=== PATIENT | female | born 1990 | race Asian ===

== ENCOUNTER 2016-07-11 16:13 | Inpatient (IN) | payer MEDICAID ==
[2016-07-11] VITALS (9 sets, daily range): BP systolic 88–106; RESP 12–26; TEMP 98.4; Ht 154.9 cm; Wt 43.2 kg
[~2016-07-11] VITALS: Ht 154.9 cm; Wt 43.2 kg
[~2016-07-11 16:13] MED LIST: ETOMIDATE 2 MG/ML VIAL IV ONE; SUCCINYLCHOLINE 20 MG/ML VL ONE
[2016-07-11] MEDS ORDERED: INSULIN DRIP 1 UNIT/ML 100 ML IV SCH ×2 (16:40→18:35)
[2016-07-11] MEDS ORDERED: DEXTROSE 50% SYRINGE 50 ML IV PRN ×2 (16:40→18:35)
[2016-07-11] MEDS ORDERED: SODIUM CHLORIDE 0.9% 1,000 ML ONE ×3 (16:41→16:49)
[2016-07-11] MEDS ORDERED: ONDANSETRON 4 MG VIAL ONE (17:15)
[2016-07-11] MEDS ORDERED: SALINE FLUSH 10 ML FLUSH PRN (18:35)
[2016-07-11] MEDS ORDERED: SODIUM CHLORIDE 0.9% 50 ML IV ONE (19:03)
[2016-07-11] MEDS: SALINE FLUSH 10 ML FLUSH SCH (20:00)
[2016-07-11] MEDS ORDERED: SOD CHLOR 0.9% 1000 ML IV SCH (20:20)
[2016-07-11] MEDS: FAMOTIDINE 20 MG INJ IV SCH (20:30)
[2016-07-12] VITALS (21 sets, daily range): BP systolic 85–109; RESP 9–93; TEMP 98–98.9
[2016-07-12] MEDS: ONDANSETRON 4 MG VIAL IV PUSH PRN ×2 (00:32→21:16)
[2016-07-12] MEDS: MORPHINE 2 MG/ML SYR IV PRN ×6 (00:33→21:16)
[2016-07-12] MEDS ORDERED: D5 W/KCL 20MEQ/L 1,000 ML IV SCH (01:35)
[2016-07-12] MEDS ORDERED: D5-1/2-NS W/KCL 20MEQ/L 1,000 ML IV SCH (01:35)
[2016-07-12] MEDS ORDERED: DEXTROSE 5% SALINE 0.45% 1,000 ML IV SCH (01:35)
[2016-07-12] MEDS ORDERED: SODIUM CHLORIDE 0.45% 1,000 ML IV SCH (01:35)
[2016-07-12] MEDS ORDERED: DEXTROSE 5% 1,000 ML IV SCH (01:35)
[2016-07-12] MEDS ORDERED: SODIUM CHLOR 0.45% W/KCL 20MEQ 1,000 ML IV SCH (01:35)
[2016-07-12] MEDS ORDERED: POTASSIUM CHLORIDE PREMIX 50 ML IV PRN (01:35)
[2016-07-12] MEDS ORDERED: DEXTROSE 5% SALINE 0.9% 1,000 ML IV SCH (01:35)
[2016-07-12] MEDS ORDERED: SODIUM CHLOR 0.9% W/KCL 20MEQ 1,000 ML IV SCH (01:35)
[2016-07-12] MEDS ORDERED: SODIUM CHLORIDE 0.9% 1,000 ML IV SCH (01:35)
[2016-07-12] MEDS: D5-NS W/KCL 20MEQ/L 1,000 ML IV SCH ×2 (01:55→09:34)
[2016-07-12] MEDS ORDERED: MISSING DOSE XX ONE (04:10)
[2016-07-12] MEDS: SODIUM CHLORIDE 0.9% FLUSH BAG 500 ML IV SCH (05:19)
[2016-07-12] MEDS: FAMOTIDINE 20 MG INJ IV SCH ×2 (09:21→19:14)
[2016-07-12] MEDS: SALINE FLUSH 10 ML FLUSH SCH ×2 (09:22→20:00)
[2016-07-12] MEDS ORDERED: PROMETHAZINE 25 MG TAB PO PRN (10:50)
[2016-07-12] MEDS: CYANOCOBA 500 MCG TAB PO SCH (10:56)
[2016-07-12] MEDS: PANTOPRAZOLE 40 MG TAB PO SCH ×2 (10:57→16:01)
[2016-07-12] MEDS: SUCRALFATE 1GM/10ML SUSP PO SCH ×3 (11:00→19:14)
[2016-07-12] MEDS: ARIPiprazole 2 MG TAB PO SCH (11:33)
[2016-07-12] MEDS: PREGABALIN 75 MG CAP PO SCH (11:33)
[2016-07-12] MEDS: FLUOXETINE 20 MG CAP PO SCH (11:33)
[2016-07-12] MEDS: PROMETHAZINE 25 MG/ML VIAL IV PRN ×3 (11:34→23:21)
[2016-07-12] MEDS: LEVEMIR INSULIN SUBQ SCH (13:21)
[2016-07-12] MEDS ORDERED: TRAZODONE 100 MG TAB PO SCH (21:00)
[2016-07-13] MEDS: MORPHINE 2 MG/ML SYR IV PRN ×3 (02:59→10:09)
[2016-07-13] MEDS: ONDANSETRON 4 MG VIAL IV PUSH PRN (02:59)
[2016-07-13 04:16] VITALS: BP_SYST 106; RESP 18; TEMP 98.6
[2016-07-13] MEDS: SODIUM CHLORIDE 0.9% FLUSH BAG 500 ML IV SCH (04:18)
[2016-07-13] MEDS ORDERED: SODIUM CHLORIDE 0.9% FLUSH BAG 500 ML IV SCH (06:00)
[2016-07-13] MEDS: SUCRALFATE 1GM/10ML SUSP PO SCH ×2 (06:17→11:58)
[2016-07-13] MEDS: PROMETHAZINE 25 MG/ML VIAL IV PRN (06:17)
[2016-07-13] MEDS: SALINE FLUSH 10 ML FLUSH SCH (06:18)
[2016-07-13] MEDS: PANTOPRAZOLE 40 MG TAB PO SCH (06:26)
[2016-07-13 07:20] VITALS: BP_SYST 101; RESP 16; TEMP 98.2
[2016-07-13] MEDS: LEVEMIR INSULIN SUBQ SCH (07:58)
[2016-07-13] MEDS: PREGABALIN 75 MG CAP PO SCH (09:33)
[2016-07-13] MEDS: FAMOTIDINE 20 MG INJ IV SCH (09:33)
[2016-07-13] MEDS: CYANOCOBA 500 MCG TAB PO SCH (09:34)
[2016-07-13] MEDS: ARIPiprazole 2 MG TAB PO SCH (09:34)
[2016-07-13] MEDS: FLUOXETINE 20 MG CAP PO SCH (09:34)
[2016-07-13] MEDS ORDERED: APAP PO PRN (10:25)
[2016-07-13] MEDS ORDERED: TRAMADOL PO PRN (10:25)
[2016-07-13 11:59] VITALS: BP_SYST 111; RESP 20; TEMP 98.5
[2016-07-13 14:21] VITALS: BP_SYST 101; RESP 16; TEMP 98.2
== END 2016-07-13 16:19 | disposition home or self-care (01) | DRG 638 ==
LOC: ENRESERVTM → ENRESERVDT → ENRESERV → CANRESERV → ER 16:13 → EMR 17:39 → ENPENDDIS 17:39 → ICU 20:05 → 3S 07-12 15:36
PROVIDERS: ADMIT Internal Medicine; ATTEND Internal Medicine
PROC: 02HV33Z Insertion of Infusion Device into Superior Vena Cava, Percutaneous Approach (ICD-10-PCS; principal; 2016-07-11)
PROC: B548ZZA Ultrasonography of Superior Vena Cava, Guidance (ICD-10-PCS; 2016-07-11)
CPT/HCPCS: 51702; 71010; 80053; 82947; 85025; 93005; 94799; 96361; 96365; 96366; 96375; 99233; 99239

== ENCOUNTER 2016-07-24 17:22 | Inpatient (IN) | payer MEDICAID ==
[~2016-07-24] VITALS: Ht 154.9 cm; Wt 44.0 kg
[2016-07-24] VITALS (7 sets, daily range): BP systolic 86–108; RESP 12–17; TEMP 97.9; Ht 154.9 cm; Wt 44.0 kg
[2016-07-24] MEDS ORDERED: SODIUM CHLORIDE 0.9% 2,000 ML ONE (17:55)
[2016-07-24] MEDS ORDERED: INSULIN DRIP 1 UNIT/ML 100 ML IV SCH ×2 (18:05→20:20)
[2016-07-24] MEDS ORDERED: DEXTROSE 50% SYRINGE 50 ML IV PRN ×2 (18:05→20:20)
[2016-07-24] MEDS ORDERED: SODIUM CHLORIDE 0.9% 1,000 ML IV SCH (20:20)
[2016-07-24] MEDS ORDERED: Furosemide 20 MG/2 ML VIAL IV ONE (20:25)
[2016-07-24] MEDS ORDERED: SODIUM CHLORIDE 0.9% 1,000 ML ONE (20:59)
[2016-07-24] MEDS ORDERED: ONDANSETRON 4 MG VIAL IV PUSH PRN (22:45)
[2016-07-24] MEDS: MORPHINE 2 MG/ML SYR IV PRN (23:08)
[2016-07-24] MEDS: DEXTROSE 5% SALINE 0.9% 1,000 ML IV SCH (23:08)
[2016-07-24] MEDS: PANTOPRAZOLE 40 MG VIAL IV SCH (23:12)
[2016-07-24] MEDS: SODIUM CHLORIDE 0.9% IV SCH (23:31)
[2016-07-24] MEDS: MEROPENEM IV SCH (23:31)
[2016-07-25] VITALS (51 sets, daily range): BP systolic 77–119; RESP 8–26; TEMP 97.6–98.4
[2016-07-25] MEDS: DEXTROSE 5% SALINE 0.9% 1,000 ML IV SCH ×2 (05:28→13:22)
[2016-07-25] MEDS ORDERED: DIPHENHYDRAMINE 25 MG CAP PO ONE (07:00)
[2016-07-25] MEDS ORDERED: ACETAMINOPHEN 325 MG TAB PO ONE (07:00)
[2016-07-25] MEDS: MORPHINE 2 MG/ML SYR IV PRN ×3 (10:19→19:14)
[2016-07-25] MEDS: SODIUM CHLORIDE 0.9% IV SCH ×2 (12:22→20:11)
[2016-07-25] MEDS: PANTOPRAZOLE 40 MG VIAL IV SCH ×2 (12:22→20:10)
[2016-07-25] MEDS: MEROPENEM IV SCH ×2 (12:22→20:11)
[2016-07-25] MEDS ORDERED: D5-NS W/KCL 20MEQ/L 1,000 ML IV SCH (18:45)
[2016-07-25] MEDS: POTASSIUM CHLORIDE PREMIX 50 ML IV SCH ×3 (18:54→20:45)
== END 2016-07-25 22:38 | disposition left against medical advice (07) | DRG 377 ==
LOC: ER 17:22 → EMR 20:37 → ICU 22:17
PROVIDERS: ADMIT Internal Medicine; ATTEND Internal Medicine
DX: K92.2 Gastrointestinal hemorrhage, unspecified (principal); E10.10 Type 1 diabetes mellitus with ketoacidosis without coma; F11.20 Opioid dependence, uncomplicated; D62 Acute posthemorrhagic anemia; Z79.4 Long term (current) use of insulin; E10.43 Type 1 diabetes mellitus with diabetic autonomic (poly)neuropathy; K31.84 Gastroparesis; E78.5 Hyperlipidemia, unspecified; E10.40 Type 1 diabetes mellitus with diabetic neuropathy, unspecified; Z91.11 Patient's noncompliance with dietary regimen; F32.9 Major depressive disorder, single episode, unspecified; E78.00 Pure hypercholesterolemia, unspecified; E86.0 Dehydration
CPT/HCPCS: 36415; 36430; 36600; 71010; 74020; 80048; 80053; 80307; 81001; 82009; 82803; 82947; 83036; 83605; 83690; 84703; 85025; 86850; 86870; 86900; 86901; 86902; 86922; 87088; 96360; 96361; 96365; 96366; 99222; 99233

== ENCOUNTER 2016-08-02 15:51 | Inpatient (IN) | payer MEDICAID ==
[~2016-08-02] VITALS: Ht 154.9 cm; Wt 43.3 kg
[2016-08-02] VITALS (19 sets, daily range): BP systolic 56–97; RESP 12–21; TEMP 97.6; Ht 154.9 cm; Wt 43.3 kg
[~2016-08-02 15:51] MED LIST changes: -ETOMIDATE 2 MG/ML VIAL IV ONE; +LIDOCAINE 2% SYR 5 ML IV ONE; +PROPOFOL 20 ML PER ML IV ONE; -SUCCINYLCHOLINE 20 MG/ML VL ONE
[2016-08-02] MEDS ORDERED: SODIUM CHLORIDE 0.9% 2,000 ML ONE (16:24)
[2016-08-02] MEDS ORDERED: DEXTROSE 50% SYRINGE 50 ML IV PRN ×2 (16:40→18:00)
[2016-08-02] MEDS ORDERED: INSULIN DRIP 1 UNIT/ML 100 ML IV SCH ×2 (16:40→18:00)
[2016-08-02] MEDS ORDERED: SOD BICARB 8.4% SYR 50 ML ONE (17:12)
[2016-08-02] MEDS ORDERED: SODIUM CHLORIDE 0.9% 1,000 ML ONE (17:40)
[2016-08-02] MEDS ORDERED: PHARMACY TO DOSE VANCOMYCIN IV SCH (17:55)
[2016-08-02] MEDS ORDERED: PHARMACY TO DOSE ZOSYN IV SCH (17:55)
[2016-08-02] MEDS ORDERED: SOD BICARB 8.4% SYR 50 ML IV PRN (18:00)
[2016-08-02] MEDS ORDERED: SODIUM CHLORIDE 0.9% 1,000 ML IV SCH (18:00)
[2016-08-02] MEDS ORDERED: NOREPINEPHRINE 16 MG in DEXTROSE 5% 234 ML IV SCH (18:05)
[2016-08-02] MEDS ORDERED: SODIUM CHLORIDE 0.9% 1,000 ML IV ONE (18:05)
[2016-08-02] MEDS ORDERED: PIPERACIL/TAZO 4.5GM/100ML 100 ML IV STA (18:37)
[2016-08-02] MEDS ORDERED: VANCOMYCIN 1,750 MG in SODIUM CHLORIDE 0.9% 500 ML IV ONE (18:40)
[2016-08-02] MEDS: PROMETHAZINE 25 MG/ML VIAL IV PRN (19:28)
[2016-08-02] MEDS ORDERED: MISSING DOSE XX ONE (20:15)
[2016-08-02] MEDS: PANTOPRAZOLE 40 MG VIAL IV SCH (20:35)
[2016-08-02] MEDS ORDERED: CALCIUM GLUCONATE 2,000 MG in SODIUM CHLORIDE 0.9% 100 ML IV ONE (21:25)
[2016-08-02] MEDS ORDERED: **NOTE TO NURSE XX SCH (21:40)
[2016-08-02] MEDS: PIPERACIL/TAZO 3.375GM/50ML 50 ML IV SCH (23:47)
[2016-08-02] MEDS: DILAUDID 1 MG/ML AMP IV PRN (23:48)
[2016-08-03] VITALS (69 sets, daily range): BP systolic 68–123; RESP 7–56; TEMP 97.1–97.9
[2016-08-03] MEDS ORDERED: MISSING DOSE XX ONE ×2 (00:35→05:40)
[2016-08-03] MEDS: ONDANSETRON 4 MG VIAL IV PUSH PRN ×2 (02:06→23:24)
[2016-08-03] MEDS: PROMETHAZINE 25 MG/ML VIAL IV PRN ×2 (03:04→12:02)
[2016-08-03] MEDS ORDERED: CALCIUM GLUCONATE IV ONE (04:00)
[2016-08-03] MEDS ORDERED: SODIUM CHLORIDE 0.9% IV ONE (04:00)
[2016-08-03] MEDS: DILAUDID 1 MG/ML AMP IV PRN ×4 (04:48→20:31)
[2016-08-03] MEDS: PIPERACIL/TAZO 3.375GM/50ML 50 ML IV SCH ×4 (06:02→23:26)
[2016-08-03] MEDS: PANTOPRAZOLE 40 MG VIAL IV SCH (07:44)
[2016-08-03] MEDS: VANCOMYCIN 500 MG in SODIUM CHLORIDE 0.9% 100 ML IV SCH ×2 (08:10→16:33)
[2016-08-03] MEDS ORDERED: POTASSIUM PHOSPHATE 45 MMOL in SODIUM CHLORIDE 0.9% 500 ML IV ONE (08:20)
[2016-08-03] MEDS ORDERED: GLUCAGON 1 MG VIAL IM PRN (08:45)
[2016-08-03] MEDS ORDERED: MAGNESIUM SULF 1 GM/100 ML 100 ML IV ONE (08:55)
[2016-08-03] MEDS: LEVEMIR INSULIN SUBQ SCH ×2 (10:06→20:46)
[2016-08-03] MEDS: MAGNESIUM SULF 1 GM/100 ML 100 ML IV SCH ×3 (10:13→14:38)
[2016-08-03] MEDS: PANTOPRAZOLE 80 MG in SODIUM CHLORIDE 0.9% 250 ML IV SCH ×2 (11:53→20:30)
[2016-08-04] VITALS (24 sets, daily range): BP systolic 80–107; RESP 0–27; TEMP 97–98.4
[2016-08-04] MEDS: VANCOMYCIN 500 MG in SODIUM CHLORIDE 0.9% 100 ML IV SCH ×2 (00:49→08:29)
[2016-08-04] MEDS: PROMETHAZINE 25 MG/ML VIAL IV PRN ×2 (00:50→21:27)
[2016-08-04] MEDS: DILAUDID 1 MG/ML AMP IV PRN ×5 (02:28→23:37)
[2016-08-04] MEDS: PANTOPRAZOLE 80 MG in SODIUM CHLORIDE 0.9% 250 ML IV SCH ×2 (07:44→16:16)
[2016-08-04] MEDS: PIPERACIL/TAZO 3.375GM/50ML 50 ML IV SCH ×2 (07:45→12:39)
[2016-08-04] MEDS ORDERED: MAGNESIUM SULF 1 GM/100 ML 100 ML IV ONE (08:20)
[2016-08-04] MEDS ORDERED: CALCIUM GLUCONATE 2,000 MG in SODIUM CHLORIDE 0.9% 100 ML IV ONE (08:20)
[2016-08-04] MEDS: DEXTROSE 50% SYRINGE 50 ML IV PRN ×2 (08:40→12:46)
[2016-08-04] MEDS: LEVEMIR INSULIN SUBQ SCH ×2 (09:00→21:28)
[2016-08-04] MEDS: POTASSIUM CHLORIDE PREMIX 50 ML IV SCH ×2 (10:43→11:44)
[2016-08-04] MEDS: ONDANSETRON 4 MG VIAL IV PUSH PRN ×2 (11:11→19:14)
[2016-08-04] MEDS: FLUCONAZOLE 100 MG TAB PO SCH (14:51)
[2016-08-04] MEDS ORDERED: VANCOMYCIN 750 MG in SODIUM CHLORIDE 0.9% 100 ML IV SCH (16:00)
[2016-08-05] MEDS: PANTOPRAZOLE 80 MG in SODIUM CHLORIDE 0.9% 250 ML IV SCH ×3 (03:12→23:07)
[2016-08-05 03:13] VITALS: BP_SYST 110; RESP 20; TEMP 98.1
[2016-08-05] MEDS: DILAUDID 1 MG/ML AMP IV PRN ×5 (03:37→20:25)
[2016-08-05] MEDS: ONDANSETRON 4 MG VIAL IV PUSH PRN ×2 (07:54→15:57)
[2016-08-05 08:23] VITALS: BP_SYST 104; RESP 16; TEMP 98.6
[2016-08-05] MEDS ORDERED: MISSING DOSE XX ONE (09:10)
[2016-08-05] MEDS: LEVEMIR INSULIN SUBQ SCH ×2 (09:59→20:23)
[2016-08-05] MEDS: FLUCONAZOLE 100 MG TAB PO SCH (09:59)
[2016-08-05] MEDS: PROMETHAZINE 25 MG/ML VIAL IV PRN ×2 (12:07→20:24)
[2016-08-05 12:35] VITALS: BP_SYST 105; RESP 18; TEMP 97.3
[2016-08-05 16:24] VITALS: BP_SYST 97; RESP 18; TEMP 98.4
[2016-08-05 20:04] VITALS: BP_SYST 100; RESP 16; TEMP 98.2
[2016-08-05 23:18] VITALS: BP_SYST 93; RESP 18; TEMP 98.4
[2016-08-06] MEDS: ONDANSETRON 4 MG VIAL IV PUSH PRN (00:19)
[2016-08-06] MEDS: DILAUDID 1 MG/ML AMP IV PRN ×6 (00:20→22:20)
[2016-08-06 04:10] VITALS: BP_SYST 94; RESP 16; TEMP 98.6
[2016-08-06] MEDS: PROMETHAZINE 25 MG/ML VIAL IV PRN ×4 (04:31→22:19)
[2016-08-06 07:49] VITALS: BP_SYST 104; RESP 16; TEMP 98.6
[2016-08-06] MEDS: LEVEMIR INSULIN SUBQ SCH ×2 (08:48→20:55)
[2016-08-06] MEDS: PANTOPRAZOLE 80 MG in SODIUM CHLORIDE 0.9% 250 ML IV SCH ×2 (09:05→17:44)
[2016-08-06] MEDS ORDERED: MISSING DOSE XX ONE (09:30)
[2016-08-06] MEDS: FLUCONAZOLE 100 MG TAB PO SCH (11:01)
[2016-08-06 11:49] VITALS: BP_SYST 108; RESP 16; TEMP 98.6
[2016-08-06 16:04] VITALS: BP_SYST 103; RESP 16; TEMP 98.4
[2016-08-06 19:24] VITALS: BP_SYST 111; RESP 18; TEMP 98.6
[2016-08-06 22:37] VITALS: BP_SYST 110; RESP 18; TEMP 98.4
[2016-08-07] MEDS: ONDANSETRON 4 MG VIAL IV PUSH PRN ×2 (02:31→11:19)
[2016-08-07] MEDS: DILAUDID 1 MG/ML AMP IV PRN ×5 (02:32→20:01)
[2016-08-07 03:26] VITALS: BP_SYST 100; RESP 16; TEMP 98.4
[2016-08-07] MEDS: PANTOPRAZOLE 80 MG in SODIUM CHLORIDE 0.9% 250 ML IV SCH ×3 (03:55→22:39)
[2016-08-07] MEDS: SODIUM CHLORIDE 0.9% FLUSH BAG 500 ML IV SCH (06:00)
[2016-08-07] MEDS: PROMETHAZINE 25 MG/ML VIAL IV PRN ×3 (06:50→22:37)
[2016-08-07 07:51] VITALS: BP_SYST 104; RESP 18; TEMP 97.9
[2016-08-07] MEDS: LEVEMIR INSULIN SUBQ SCH ×2 (09:00→20:01)
[2016-08-07] MEDS: FLUCONAZOLE 100 MG TAB PO SCH (09:14)
[2016-08-07 11:38] VITALS: BP_SYST 99; RESP 16; TEMP 98.2
[2016-08-07 15:53] VITALS: BP_SYST 99; RESP 16; TEMP 98.5
[2016-08-07 19:59] VITALS: BP_SYST 106; RESP 18; TEMP 98.5
[2016-08-07 23:16] VITALS: BP_SYST 97; RESP 16; TEMP 98.3
[2016-08-08] MEDS: DILAUDID 1 MG/ML AMP IV PRN ×6 (00:03→21:01)
[2016-08-08] MEDS: SODIUM CHLORIDE 0.9% FLUSH BAG 500 ML IV SCH (02:28)
[2016-08-08 02:57] VITALS: BP_SYST 93; RESP 16; TEMP 98.1
[2016-08-08] MEDS: PROMETHAZINE 25 MG/ML VIAL IV PRN ×3 (04:39→21:00)
[2016-08-08 07:48] VITALS: BP_SYST 105; RESP 20; TEMP 99.3
[2016-08-08] MEDS: FLUCONAZOLE 100 MG TAB PO SCH (08:38)
[2016-08-08] MEDS: LEVEMIR INSULIN SUBQ SCH ×2 (08:38→21:02)
[2016-08-08] MEDS: ONDANSETRON 4 MG VIAL IV PUSH PRN ×2 (08:39→17:14)
[2016-08-08] MEDS ORDERED: MISSING DOSE XX ONE (08:55)
[2016-08-08] MEDS: PANTOPRAZOLE 80 MG in SODIUM CHLORIDE 0.9% 250 ML IV SCH ×2 (09:32→17:23)
[2016-08-08 11:25] VITALS: BP_SYST 105; RESP 20; TEMP 99
[2016-08-08 15:32] VITALS: BP_SYST 93; TEMP 98.6
[2016-08-08 15:33] VITALS: RESP 20
[2016-08-08 20:50] VITALS: BP_SYST 98; RESP 16; TEMP 99
[2016-08-09] VITALS (7 sets, daily range): BP systolic 94–107; RESP 12–20; TEMP 98.4–98.6
[2016-08-09] MEDS: DILAUDID 1 MG/ML AMP IV PRN ×3 (01:06→09:38)
[2016-08-09] MEDS: ONDANSETRON 4 MG VIAL IV PUSH PRN (01:06)
[2016-08-09] MEDS: PANTOPRAZOLE 80 MG in SODIUM CHLORIDE 0.9% 250 ML IV SCH (03:54)
[2016-08-09] MEDS: PROMETHAZINE 25 MG/ML VIAL IV PRN ×2 (04:00→11:40)
[2016-08-09] MEDS: SODIUM CHLORIDE 0.9% FLUSH BAG 500 ML IV SCH (05:03)
[2016-08-09] MEDS ORDERED: GLUCAGON 1 MG VIAL IM PRN (05:05)
[2016-08-09] MEDS ORDERED: DEXTROSE 50% SYRINGE 50 ML IV PRN (05:05)
[2016-08-09] MEDS: FLUCONAZOLE 100 MG TAB PO SCH (08:34)
[2016-08-09] MEDS: LEVEMIR INSULIN SUBQ SCH (09:49)
[2016-08-09] MEDS ORDERED: ACETAMINOPHEN 325 MG TAB PO PRN (10:55)
== END 2016-08-09 18:12 | disposition home or self-care (01) | DRG 871 ==
LOC: ENRESERVDT → ENRESERVTM → ER 15:51 → ENPENDDIS 18:16 → EMR 18:16 → ICU 19:00 → PCU2 08-04 18:06
PROVIDERS: ADMIT Internal Medicine; ATTEND Internal Medicine
PROC: 0DB38ZX Excision of Lower Esophagus, Via Natural or Artificial Opening Endoscopic, Diagnostic (ICD-10-PCS; 2016-08-04)
PROC: 0DB28ZX Excision of Middle Esophagus, Via Natural or Artificial Opening Endoscopic, Diagnostic (ICD-10-PCS; principal; 2016-08-04 13:25)
DX: A41.9 Sepsis, unspecified organism (principal); R57.1 Hypovolemic shock; E10.10 Type 1 diabetes mellitus with ketoacidosis without coma; K22.11 Ulcer of esophagus with bleeding; N17.9 Acute kidney failure, unspecified; E46 Unspecified protein-calorie malnutrition; T68.XXXA Hypothermia, initial encounter; J18.9 Pneumonia, unspecified organism; B37.81 Candidal esophagitis; D62 Acute posthemorrhagic anemia; E87.1 Hypo-osmolality and hyponatremia; K31.84 Gastroparesis; F41.9 Anxiety disorder, unspecified; F32.9 Major depressive disorder, single episode, unspecified; E10.43 Type 1 diabetes mellitus with diabetic autonomic (poly)neuropathy; Z91.19 Patient's noncompliance with other medical treatment and regimen
CPT/HCPCS: 36415; 36430; 36558; 71010; 80048; 80051; 80053; 80202; 80307; 81003; 82009; 82330; 82803; 82947; 83605; 83690; 83735; 84100; 84703; 85014; 85018; 85025; 86850; 86870; 86900; 86901; 86902; 86922; 87040; 87088; 88305; 88311; 96361; 96365; 96366; 96374; 99231; 99232; 99233; 99239; 99291

== ENCOUNTER 2016-08-14 13:15 | Inpatient (IN) | payer MEDICAID ==
[~2016-08-14] VITALS: Ht 154.9 cm; Wt 43.7 kg
[2016-08-14] VITALS (13 sets, daily range): BP systolic 85–112; RESP 12–16; TEMP 97.6–98.3; Ht 154.9 cm; Wt 43.7 kg
[2016-08-14] MEDS ORDERED: INSULIN DRIP 1 UNIT/ML 100 ML IV SCH ×2 (14:50→15:05)
[2016-08-14] MEDS ORDERED: DEXTROSE 50% SYRINGE 50 ML IV PRN ×2 (14:50→15:05)
[2016-08-14] MEDS ORDERED: BISACODYL 10 MG SUPP RECTAL PRN (15:10)
[2016-08-14] MEDS ORDERED: SODIUM CHLORIDE 0.9% 1,000 ML IV SCH (15:10)
[2016-08-14] MEDS ORDERED: SALINE FLUSH 10 ML FLUSH PRN (15:10)
[2016-08-14] MEDS ORDERED: MAG HYDROX 30 ML UDC PO PRN (15:10)
[2016-08-14] MEDS ORDERED: ALU/MAG/SIM 30 ML UDC PO PRN (15:10)
[2016-08-14] MEDS ORDERED: BISACODYL EC 5 MG TAB PO PRN (15:10)
[2016-08-14] MEDS ORDERED: PROMETHAZINE 25 MG/ML VIAL IV PRN (15:10)
[2016-08-14] MEDS ORDERED: ONDANSETRON 4 MG VIAL IV PRN (15:10)
[2016-08-14] MEDS ORDERED: DILAUDID 1 MG/ML AMP IV PRN ×2 (15:15→21:10)
[2016-08-14] MEDS ORDERED: LORAZEPAM 2 MG/ML VIAL IV PRN (15:15)
[2016-08-14] MEDS ORDERED: SODIUM CHLORIDE 0.9% 1,000 ML ONE (15:17)
[2016-08-14] MEDS ORDERED: HALOPERIDOL 5 MG/ML VIAL ONE (15:17)
[2016-08-14] MEDS: ARIPiprazole 2 MG TAB PO SCH (15:39)
[2016-08-14] MEDS: SUCRALFATE 1GM/10ML SUSP PO SCH ×2 (16:00→21:00)
[2016-08-14] MEDS: DUONEB INH SCH ×2 (17:31→22:16)
[2016-08-14] MEDS: PANTOPRAZOLE 40 MG VIAL IV SCH (18:28)
[2016-08-14] MEDS: SALINE FLUSH 10 ML FLUSH SCH (20:59)
[2016-08-14] MEDS ORDERED: TRAZODONE 50 MG TAB PO SCH (21:00)
[2016-08-15] VITALS (32 sets, daily range): BP systolic 78–124; RESP 10–24; TEMP 96.8–98.7
[2016-08-15] MEDS: DUONEB INH SCH ×6 (02:08→22:55)
[2016-08-15] MEDS: SUCRALFATE 1GM/10ML SUSP PO SCH ×4 (05:50→21:08)
[2016-08-15] MEDS: SODIUM CHLORIDE 0.9% FLUSH BAG 500 ML IV SCH (05:50)
[2016-08-15] MEDS: SALINE FLUSH 10 ML FLUSH SCH ×2 (07:09→22:44)
[2016-08-15] MEDS: PREGABALIN 75 MG CAP PO SCH (07:52)
[2016-08-15] MEDS: FLUOXETINE 20 MG CAP PO SCH (07:52)
[2016-08-15] MEDS: PANTOPRAZOLE 40 MG VIAL IV SCH (07:52)
[2016-08-15] MEDS: CYANOCOBA 500 MCG TAB PO SCH (07:52)
[2016-08-15] MEDS: ARIPiprazole 2 MG TAB PO SCH (07:53)
[2016-08-15] MEDS: FLUCONAZOLE 100 MG TAB PO SCH (07:53)
[2016-08-15] MEDS ORDERED: PROMETHAZINE 25 MG TAB PO PRN (08:50)
[2016-08-15] MEDS ORDERED: LEVEMIR INSULIN SUBQ ONE (08:50)
[2016-08-15] MEDS: LEVEMIR INSULIN SUBQ SCH (09:00)
[2016-08-15] MEDS ORDERED: ENOXAPARIN 40 MG/0.4 ML SYR SUBQ SCH (09:00)
[2016-08-15] MEDS: SODIUM CHLOR 0.9% W/KCL 20MEQ 1,000 ML IV SCH (09:47)
[2016-08-15] MEDS ORDERED: GLUCAGON 1 MG VIAL IM PRN (16:50)
[2016-08-15] MEDS ORDERED: DEXTROSE 50% SYRINGE 50 ML IV PRN (16:50)
[2016-08-15] MEDS ORDERED: ACETAMINOPHEN 325 MG TAB PO PRN (17:15)
[2016-08-15] MEDS: PANTOPRAZOLE 40 MG TAB PO SCH (17:23)
[2016-08-15] MEDS ORDERED: TRAZODONE 100 MG TAB PO SCH (21:00)
[2016-08-16 02:44] VITALS: BP_SYST 101; RESP 16; TEMP 98.1
[2016-08-16] MEDS: DUONEB INH SCH ×4 (02:58→14:23)
[2016-08-16] MEDS: SODIUM CHLORIDE 0.9% FLUSH BAG 500 ML IV SCH (04:08)
[2016-08-16] MEDS: SODIUM CHLOR 0.9% W/KCL 20MEQ 1,000 ML IV SCH (04:17)
[2016-08-16] MEDS: SUCRALFATE 1GM/10ML SUSP PO SCH ×2 (05:33→11:00)
[2016-08-16] MEDS: PANTOPRAZOLE 40 MG TAB PO SCH (05:35)
[2016-08-16 07:27] VITALS: BP_SYST 100; RESP 16; TEMP 98
[2016-08-16] MEDS: SALINE FLUSH 10 ML FLUSH SCH (07:49)
[2016-08-16] MEDS: LEVEMIR INSULIN SUBQ SCH (09:20)
[2016-08-16] MEDS: FLUCONAZOLE 100 MG TAB PO SCH (09:21)
[2016-08-16] MEDS: ARIPiprazole 2 MG TAB PO SCH (09:21)
[2016-08-16] MEDS: PREGABALIN 75 MG CAP PO SCH (09:21)
[2016-08-16] MEDS: FLUOXETINE 20 MG CAP PO SCH (09:21)
[2016-08-16] MEDS: CYANOCOBA 500 MCG TAB PO SCH (09:21)
[2016-08-16 11:00] VITALS: BP_SYST 110; RESP 20; TEMP 98.6
[2016-08-16 11:15] VITALS: BP_SYST 110; RESP 20; TEMP 98.6
[2016-08-16 14:02] VITALS: BP_SYST 110; RESP 20; TEMP 98.6
[2016-08-18] MEDS ORDERED: PANTOPRAZOLE 40 MG TAB PO SCH (07:00)
== END 2016-08-16 14:41 | disposition home or self-care (01) | DRG 637 ==
LOC: ENRESERVDT → ENRESERVTM → ER 13:15 → EMR 15:06 → ENPENDDIS 15:06 → ICU 16:05 → 4NT 08-15 16:00
PROVIDERS: ADMIT Internal Medicine; ATTEND Internal Medicine
DX: E10.10 Type 1 diabetes mellitus with ketoacidosis without coma (principal); E43 Unspecified severe protein-calorie malnutrition; K56.0 Paralytic ileus; Z68.1 Body mass index [BMI] 19.9 or less, adult; Z91.19 Patient's noncompliance with other medical treatment and regimen; Z83.3 Family history of diabetes mellitus; Z82.49 Family history of ischemic heart disease and other diseases of the circulatory system; Z87.898 Personal history of other specified conditions; D63.8 Anemia in other chronic diseases classified elsewhere; D47.3 Essential (hemorrhagic) thrombocythemia
CPT/HCPCS: 36415; 36430; 36600; 80048; 80053; 82009; 82803; 82947; 83540; 84466; 84703; 85014; 85018; 85025; 86850; 86870; 86900; 86901; 86902; 94640; 94799; 96374; 96375; 99223; 99233; 99239